=== PATIENT | male | born 1940 | race Caucasian/White ===

== ENCOUNTER → 2017-11-19 | Day surgery (SDC) | payer OTHER ==
[2017-11-17 12:40] LABS: BASOPHILS # (AUTO) 0.1 (0.0-0.1); BASOPHILS % 0.8 % (0.0-1.0); EOSINOPHILS # (AUTO) 0.2 (0.0-0.4); EOSINOPHILS % 2.4 % (0.0-6.0); HEMATOCRIT 43.3 % (38.2-49.6); HEMOGLOBIN 14.6 g/dL (14.0-18.0); LYMPHOCYTES # (AUTO) 1.1 (1.0-3.2); LYMPHOCYTES % 16.6 % (18.0-39.1); MEAN CORPUSCULAR HEMOGLOBIN 32.2 pg (28-32); MEAN CORPUSCULAR HGB CONC 33.7 g/dL (31-35); MEAN CORPUSCULAR VOLUME 95.4 fL (81-99); MONOCYTES # (AUTO) 0.6 (0.2-0.8); MONOCYTES % 8.4 % (4.4-11.3); NEUTROPHILS # (AUTO) 4.7 (2.1-6.9); NEUTROPHILS % 71.5 % (38.7-80.0); PLATELET COUNT 145 x10e3/uL (140-360); RED BLOOD COUNT 4.54 x10e6/uL (4.3-5.7); RED CELL DISTRIBUTION WIDTH 14.3 % (11.7-14.4)
[2017-11-17 12:58] LABS: ANION GAP 12.6 mmol/L (8-16); CALCIUM 9.5 mg/dL (8.4-10.2); CREATININE, SERUM 2.6 mg/dL (0.72-1.25); POTASSIUM 4.6 mmol/L (3.5-5.1)
[~2017-11-19] MED LIST: ACETAMINOPHEN/COD; ACETAMINOPHEN500 M1; ALLOPURINOL100 MG; ASPIRIN325 MG PO; CLOPIDOGREL75 MG PO; DIALYVITE 800-1 EACH; DIPHENHYDRAMINE25 M1; FAMOTIDINE20 MG; FENTANYL CITRATE/PF 100MCG/2 ML INJ ONE; FLAXSEED OIL1000 M1; GABAPENTIN300 MG; GENTAMICIN OINT; LOPERAMIDE2 MG PO; MIDAZOLAM HCL 2 MG/2 ML VIAL ONE; PROLIA60 MG/1 ML IM; PROPOFOL IV EMULSION 10 MG/ML 20 ML VIAL ONE; PSEUDOEPHEDRINE30 MG PO; SIMVASTATIN40 MG; SODIUM CHLORIDE 0.9% 500ML 500 ML ONE; TAMSULOSIN HCL0.4 MG; TESTOSTERONE; TUMS ULTRA400 MG; ULTRAM50 MG; WAL-ACT TABLET1 EACH; [UNRECOGNIZED DRUG - OTHER]; [UNRECOGNIZED DRUG - REMARK]
--- OUTSIDE RECORDS SUMMARY | 2017-11-19 05:48 | XMS REPORT ---
Author Organization Unknown Address [address] [place] [address] Phone [phone] Care Team Providers Care Resident Buyer Name Role Phone BULMARO "DALY" LEILA KIRBY 3 [phone] LB ROBERTSON 61 Unavailable CARD MARTHA KIRBY 82 [phone] EWA KRAUS MD 118 [phone] MINI PALMER MD 111 [phone] TWYLA CASTANO 107 [phone] Allergies Code Code System Name Reaction Severity Status Onset NKDA Medications Name Status Start Date Stop Date acetaminophen 300 mg-codeine 30 mg tablet Completed 07/22/2016 alendronate 70 mg tablet Completed 10/27/2017 allopurinol 100 mg tablet Active Not available amoxicillin 500 mg capsule Completed 09/13/2017 azithromycin 500 mg tablet Completed 07/22/2016 cephalexin 500 mg capsule Completed 03/08/2017 clopidogrel 75 mg tablet Active Not available desoximetasone 0.05 % topical cream Completed 09/30/2016 Dialyvite 800 Plus D 1 tab Q D Active Not available dicyclomine 10 mg capsule Take 1 capsule 3 times a day by oral route for 30 days. Active 10/27/2017 Not available diphenhydramine 25 mg capsule Take 1 capsule as needed by oral route. Active Not available famotidine 10 mg tablet Take 1 tablet every day by oral route as needed. Active Not available flaxseed oil 1,000 mg capsule Take 1300 mg every day by oral route. Active Not available gabapentin 300 mg capsule TAKE 1 CAPSULE BY MOUTH TWICE A DAY DIRECTED Completed 12/17/2016 Gavilyte-C 240 gram-22.72 gram-6.72 gram-5.84 gram oral solution Completed 10/27/2017 loperamide 2 mg tablet Take 1 tablet every 4-6 hours by oral route as needed. Active Not available Multivitamin 50 Plus tablet Take 1 tablet every day by oral route. Active Not available peg-electrolyte solution 420 gram oral solution Completed 10/05/2016 Prevnar 13 (PF) 0.5 mL intramuscular syringe Completed 07/22/2016 Prolia 60 mg/mL subcutaneous syringe inject 1 ml by subcutaneous route once every 6 months. 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 History Pure Hypercholesterolemia Active 05/20/2015 History Hypertensive End Stage Renal Disease Active 05/20/2015 History End Stage Renal Disease Active 05/20/2015 History Hyperuricemia without Signs of Inflammatory Arthritis and Tophaceous Disease Unknown 05/20/2015 History Dependence on Renal Dialysis Active 05/20/2015 History Thoracic Aortic Aneurysm without Rupture Active 10/07/2015 History Abdominal Aortic Aneurysm without Rupture Active 10/07/2015 History Arteriovenous Fistula Unknown 10/07/2015 History Hyperparathyroidism Due to Renal Insufficiency Active 10/07/2015 History Total Nephrectomy Active 10/07/2015 History Ventral Incisional Hernia of Anterior Abdominal Wall without Obstruction and without Gangrene Active 01/08/2016 History Epiretinal Membrane Active 04/21/2016 Posterior Vitreous Detachment Active 04/21/2016 Paving Stone Retinal Degeneration Active 06/10/2016 Obstructive Sleep Apnea Syndrome Active 04/06/2017 Horseshoe Retinal Tear without Detachment Unknown 05/20/2017 Horseshoe Retinal Tear without Detachment Active 05/20/2017 Retinal Lattice Degeneration Active 05/20/2017 Mixed Hyperlipidemia Active 09/13/2017 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 09/13/2017 Idiopathic Progressive Polyneuropathy Active 09/13/2017 Long-term Current Use of Antiplatelet Drug Active 09/13/2017 Osteoporosis Active 10/15/2017 Ex-smoker Active 10/27/2017 Procedures Date Name Performed by Hernia Repair Notes: 1980 Information not available Hernia Repair Notes: 1993 Information not available 07/22/2016 Electrocardiogram [facility] [address] [facility] [address] [place] [address] (Work Place) 09/13/2017 Bone Density [facility] [address] [place], [place] [id number] (Work Place) 09/13/2017 US, Abdominal Aorta [facility] [address] [place] [address] (Work Place) 09/13/2017 US, Duplex, Aorta [facility]) [address] [place] [address] (Work Place) Notes: S/P Laparascopic R Nephrectomy 2* to RCA; Surgery Date: 2010 Lab Results Date Name Specimen Result Interpretation Description Value Range Status Address 09/14/2017 Fecal Occult Blood, Stool Fecal Globin by [employer] ( Medicare) see note Final [facility] Laboratory: [address] [address], [place] 09/13/2017 Uric Acid, Serum or Plasma Normal Uric Acid 5.2 mg/dL 4.0-8.0 mg/dL [facility] Laboratory: [address] [facility] [address] , [place] 09/13/2017 PSA, Serum or Plasma Normal PSA, Total 0.5 NG/mL < or= 4.0 NG/mL [facility] Laboratory: [address] [address], [place] Electrocardiogram Rate & Rhythm [facility]: [address] [facility] [address], [place] Qrs [facility]: [address] [address], [place] Interval [facility]: [address] [facility] [address], [place] QRS Duration [facility]: [address] [address], [place] QT Interval [facility]: [address] [address], [place] Past Encounters 10/27/2017 Body Mass Index 30+ - Obesity; Osteoporosis; Ex-smoker; Mixed Hyperlipidemia; Hypertensive End Stage Renal Disease Bulmaro Mayfield MD: [address] [address], Ph. 10/07/2017 Marilin Garnica: 9055 [facility], [address] [address], [place]. 09/13/2017 Adult Health Examination; Body Mass Index 30+ - Obesity; Hypertensive End Stage Renal Disease; Idiopathic Progressive Polyneuropathy; End Stage Renal Disease; Dependence on Renal Dialysis; Hyperparathyroidism Due to Renal Insufficiency; Total Nephrectomy; Obstructive Sleep Apnea Syndrome; Paving Stone Retinal Degeneration; Epiretinal Membrane; Posterior Vitreous Detachment; Horseshoe Retinal Tear without Detachment; Retinal Lattice Degeneration; Thoracic Aortic Aneurysm without Rupture; Disorder of Purine and Pyrimidine Metabolism; Abdominal Aortic Aneurysm without Rupture; Testicular Hypofunction; Long-term Current Use of Antiplatelet Drug; Mixed Hyperlipidemia; Ventral Incisional Hernia of Anterior Abdominal Wall without Obstruction and without Gangrene; Screening for Malignant Neoplasm of Prostate; Screening for Malignant Neoplasm of Colon; Advance Directive Discussed with Patient; Depression Screening; Screening for Osteoporosis Bulmaro Mayfield MD: [id number] [facility] [address], [place] [address], Ph. 07/28/2017 Body Mass Index 30+ - Obesity; Hypertensive End Stage Renal Disease; End Stage Renal Disease; Dependence on Renal Dialysis; Horseshoe Retinal Tear without Detachment; Retinal Lattice Degeneration; Obstructive Sleep Apnea Syndrome; Thoracic Aortic Aneurysm without Rupture; Abdominal Aortic Aneurysm without Rupture; Testicular Hypofunction; Total Nephrectomy; Hyperparathyroidism Due to Renal Insufficiency; Hyperuricemia without Signs of Inflammatory Arthritis and Tophaceous Disease; Pure Hypercholesterolemia; Ventral Incisional Hernia of Anterior Abdominal Wall without Obstruction and without Gangrene Bulmaro Mayfield MD: [address] [facility], [address] [address], Ph. 05/31/2017 Cassaine Robertson: 9055 [facility], [address] [address], Ph. 04/28/2017 Syncope; Hypertensive End Stage Renal Disease; Obstructive Sleep Apnea Syndrome SANCHO Christopher: [address] [facility], [address] [address], Ph. 04/28/2017 Cassaine Robertson: 9055 [facility], [address] [address], Ph. 03/31/2017 Hypertensive End Stage Renal Disease; Pure Hypercholesterolemia Cassaine Robertson: 9055 [facility], [address] [address], Ph. 03/08/2017 Hypertensive End Stage Renal Disease; End Stage Renal Disease; Dependence on Renal Dialysis Bulmaro Mayfield MD: [address] [facility], [address] [address], Ph. 02/24/2017 Cassaine Robertson: [address]055 Sharmin [address]iggins, [facility] [address], [place] [address], Ph. 01/27/2017 Cassaine Robertson: 9055 Sharmin Riggins, [facility] [address], [place] [address], Ph. 01/20/2017 Hypertensive End Stage Renal Disease; Low Blood Pressure Bulmaro Mayfield MD: 6[address]14 [address]ins, [facility] [address], [place] [address], Ph. 12/04/2016 Hypertensive End Stage Renal Disease; Pure Hypercholesterolemia Shefaliaine Robertson: [address]055 [address]iggins, [facility] [address], [place] [address], Ph. 11/06/2016 Shefaliaine Robertson: 9055 Sharmin Riggins, [facility] [address], [place] [address], Ph. 10/19/2016 Lower Urinary Tract Symptoms Due to Benign Prostatic Hypertrophy; Pure Hypercholesterolemia; Hereditary and Idiopathic Peripheral Neuropathy; Hypertensive End Stage Renal Disease; Disorder of Purine and Pyrimidine Metabolism Bulmaro Mayfield MD: [id number] Pete Riggins, [facility] [address], [place] [address], Ph. 10/02/2016 Hypertensive End Stage Renal Disease; Pure Hypercholesterolemia Lb Robertson: [address] Sharmin Riggins, [facility] [address], [place] [address], Ph. 09/30/2016 Hypertensive End Stage Renal Disease; End Stage Renal Disease; Dependence on Renal Dialysis; Foreign Body in Ear Bulmaro Mayfield MD: 86544 Pete Riggins, [facility] [address], [place] [address], Ph. 08/26/2016 Cassaine Robertson: [address]055 Sharmin R[address], [address] [address], [place] [address], Ph. 07/30/2016 Shefaliaine Robertson: 9055 [facility] [address] [address], [place] [address], Ph. 07/22/2016 Adult Health Examination; Hypertensive End Stage Renal Disease; End Stage Renal Disease; Dependence on Renal Dialysis; Paving Stone Retinal Degeneration; Posterior Vitreous Detachment; Pure Hypercholesterolemia; Disorder of Purine and Pyrimidine Metabolism; Lower Urinary Tract Symptoms Due to Benign Prostatic Hypertrophy; Hereditary and Idiopathic Peripheral Neuropathy; Thoracic Aortic Aneurysm without Rupture; Abdominal Aortic Aneurysm without Rupture; Umbilical Hernia without Obstruction and without Gangrene; Testicular Hypofunction; Advance Directive Discussed with Patient; Body Mass Index 30+ - Obesity; Screening for Malignant Neoplasm of Colon; Screening for Malignant Neoplasm of Prostate Bulmaro Mayfield MD: [id number] [facility], [address], [place] [address], Ph. Social History Smoking Status Former Smoker Notes: Quit 2004 Vaccine List Vaccine Type influenza, high dose seasonal 03/26/2016 04/27/2017 influenza, seasonal, injectable 04/02/2014 pneumococcal, unspecified formulation 04/06/2014 Tdap 07/19/2012 Notes: decline's all vaccine's -10/27/2017-calin Plan of Care Patient Instructions PROBLEM The patient has a diagnosis of ESRD GOAL The patients condition will be managed in the outpatient setting. INTERVENTIONS . Keep routine f/u appts with pcp/specialist including labs and diagnostic tests . Take all medications as ordered . Comply with renal diet and fluid restriction . Follow dialysis schedule . Do not take advil, motrin, naproxen or similar medicines unless your doctor tells you to. . Do not smoke or drink alcohol .Self monitor and report n/v, fever, chest pain/sob, confusion, weakness, edema. . Report increased pain, swelling, warmth, redness, red streaks, pus from dialysis access site. Problem: The patient has a diagnosis of pure hypercholesterolemia. Goal: The patient will have an improvement of cholesterol lab values. Interventions: 1. Encourage patient to exercise 3 times a week for about 30 minutes 2. Encourage patient to follow a heart healthy/renal diet. 3. Encourage patient to take medication as prescribed. PROBLEM The patient has a diagnosis of ESRD GOAL The patients condition will be managed in the outpatient setting. INTERVENTIONS . Keep routine f/u appts with pcp/specialist including labs and diagnostic tests . Take all medications as ordered . Comply with renal diet and fluid restriction . Follow dialysis schedule . Do not take advil, motrin, naproxen or similar medicines unless your doctor tells you to. . Do not smoke or drink alcohol .Self monitor and report n/v, fever, chest pain/sob, confusion, weakness, edema. . Report increased pain, swelling, warmth, redness, red streaks, pus from dialysis access site. Problem: The patient has a diagnosis of pure hypercholesterolemia. Goal: The patient will have an improvement of cholesterol lab values. Interventions: 1. Encourage patient to exercise 3 times a week for about 30 minutes 2. Encourage patient to follow a heart healthy/renal diet. 3. Encourage patient to take medication as prescribed. PROBLEM The patient has a diagnosis of ESRD GOAL The patients condition will be managed in the outpatient setting. INTERVENTIONS . Keep routine f/u appts with pcp/specialist including labs and diagnostic tests . Take all medications as ordered . Comply with renal diet and fluid restriction . Follow dialysis schedule . Do not take advil, motrin, naproxen or simiilar medicines unless your doctor tells you to. . Do not smoke or drink alcohol .Self monitor and report n/v, fever, chest pain/sob, confusion, weakness, edema. . Report increased pain, swelling, warmth, redness, red streaks, pus from dialysis access site. PROBLEM The patient has a diagnosis of ESRD GOAL The patients condition will be managed in the outpatient setting. INTERVENTIONS . Keep routine f/u appts with pcp/specialist including labs and diagnostic tests . Take all medications as ordered . Comply with renal diet and fluid restriction . Follow dialysis schedule . Do not take advil, motrin, naproxen or simiilar medicines unless your doctor tells you to. . Do not smoke or drink alcohol .Self monitor and report n/v, fever, chest pain/sob, confusion, weakness, edema. . Report increased pain, swelling, warmth, redness, red streaks, pus from dialysis access site. It was good to see you in the office today for your Medicare Annual Wellness Visit. You have been provided some information on healthy nutrition, including a diet rich in fruits and vegetables, minimizing simple carbohydrates, salt, and saturated fats. I want to encourage regular cardiovascular exercise such as walking at least 30 minutes daily, 5 times per week. Please remember to schedule any preventive health measures that we talked about today. You have also been provided education on fall prevention and community- based lifestyle interventions to help reduce health risks and promote healthy living in your [employer] folder. Reminders Provider Appointments None recorded. Lab None recorded. Referral None recorded. Procedures None recorded. Surgeries None recorded. Imaging None recorded. Vitals 10/27/2017 10:45AM Est Patient Height Weight BMI Blood Pressure 5 ft 8.5 in 204.6 lbs 30.7 kg/m2 106/60 mm[Hg] 09/13/2017 11:00AM AWV Height Weight BMI Blood Pressure 5 ft 8.5 in 204.2 lbs 30.6 kg/m2 122/78 mm[Hg] 07/28/2017 10:15AM Est Patient Height Weight BMI Blood Pressure 5 ft 8.5 in 204.2 lbs 30.6 kg/m2 118/79 mm[Hg] 04/28/2017 10:15AM Est Patient Height Weight BMI Blood Pressure 5 ft 8.5 in 204 lbs 30.6 kg/m2 125/75 mm[Hg] 03/08/2017 02:15PM Est Patient Height Weight BMI Blood Pressure 5 ft 8.5 in 208 lbs 31.2 kg/m2 131/82 mm[Hg] 01/20/2017 10:15AM Est Patient Height Weight BMI Blood Pressure 5 ft 9.5 in 208.4 lbs 30.3 kg/m2 119/82 mm[Hg] 10/19/2016 10:45AM Est Patient Height 5 ft 9.5 in 09/30/2016 03:30PM Work In Same Day Height Weight BMI Blood Pressure 5 ft 9.5 in 216.8 lbs 31.6 kg/m2 109/66 mm[Hg] 07/22/2016 10:00AM Est Patient Height Weight BMI Blood Pressure 5 ft 9.5 in 218.6 lbs 31.8 kg/m2 121/80 mm[Hg] 01/08/2016 Height Weight BMI Blood Pressure 5 ft 9.5 in 213.8 lbs 31.12 kg/m2 134/74 mm[Hg] 10/07/2015 Height Weight BMI Blood Pressure 5 ft 9.5 in 217 lbs 31.58 kg/m2 112/68 mm[Hg] 07/09/2015 Height Weight BMI Blood Pressure 5 ft 9.5 in 214.4 lbs 31.20 kg/m2 122/74 mm[Hg] 05/20/2015 Height Weight BMI Blood Pressure 5 ft 9.5 in 216 lbs 31.44 kg/m2 124/70 mm[Hg] 03/27/2015 Height Weight BMI Blood Pressure 5 ft 9.5 in 215.4 lbs 31.35 kg/m2 122/84 mm[Hg] 02/15/2015 Height Weight BMI Blood Pressure 5 ft 9.5 in 223.6 lbs 32.54 kg/m2 124/74 mm[Hg] 01/02/2015 Height Weight BMI Blood Pressure 5 ft 9.5 in 218.6 lbs 31.82 kg/m2 118/70 mm[Hg] 11/21/2014 Height Weight BMI Blood Pressure 5 ft 9.5 in 217.6 lbs 31.67 kg/m2 116/60 mm[Hg] 11/12/2014 Height Weight BMI Blood Pressure 5 ft 9.5 in 220.6 lbs 32.11 kg/m2 124/70 mm[Hg] 10/03/2014 Height Weight BMI Blood Pressure 5 ft 9.5 in 221.2 lbs 32.19 kg/m2 118/60 mm[Hg] 08/13/2014 Height Weight BMI Blood Pressure 5 ft 9.5 in 223.2 lbs 32.48 kg/m2 115/70 mm[Hg] 05/14/2014 Height Weight BMI Blood Pressure 5 ft 9.5 in 215 lbs 31.29 kg/m2 106/60 mm[Hg] 04/17/2014 Height Weight BMI Blood Pressure 5 ft 9.5 in 215.8 lbs 31.41 kg/m2 114/62 mm[Hg] 02/26/2014 Height Weight 5 ft 9.5 in 215.2 lbs 02/21/2014 Height Weight 5 ft 9.5 in 217 lbs 02/12/2014 Height Weight 5 ft 9.5 in 217.5 lbs 11/13/2013 Height Weight 4 ft 10.5 in 272 lbs 09/13/2013 Height Weight 5 ft 9.5 in 210 lbs 08/18/2013 Height Weight 5 ft 9.5 in 209 lbs 07/24/2013 Height Weight 5 ft 9.5 in 209 lbs 06/26/2013 Height Weight 5 ft 9.5 in 216.4 lbs 05/30/2013 Height Weight 5 ft 9.5 in 215.2 lbs 05/03/2013 Height Weight 5 ft 9.5 in 223.5 lbs 03/22/2013 Height Weight 5 ft 9.5 in 222.6 lbs 02/27/2013 Weight 218.8 lbs 01/18/2013 Height Weight 5 ft 9.5 in 216.6 lbs 01/06/2013 Height Weight 5 ft 9.5 in 217.2 lbs 11/08/2012 Height Weight 5 ft 9.5 in 215.6 lbs 10/19/2012 Height Weight 5 ft 9.5 in 218.4 lbs 08/17/2012 Height 5 ft 9.5 in 08/17/2012 Weight 219.4 lbs 08/03/2012 Height Weight 5 ft 9.5 in 223.2 lbs 07/20/2012 Height Weight 5 ft 9.5 in 220.2 lbs 07/06/2012 Height Weight 5 ft 9.5 in 223.2 lbs 06/22/2012 Height Weight 5 ft 9.5 in 226.2 lbs 06/07/2012 Height Weight 5 ft 9.5 in 223.6 lbs 05/24/2012 Weight 231.8 lbs 05/24/2012 Height 5 ft 9.5 in 05/10/2012 Height Weight 5 ft 9.5 in 221.4 lbs 04/26/2012 Height Weight 5 ft 9.5 in 217.8 lbs 04/11/2012 Height Weight 5 ft 9.5 in 227.2 lbs 03/24/2012 Height Weight 5 ft 9.5 in 218.6 lbs 03/17/2012 Height Weight 5 ft 9.5 in 219.2 lbs 03/11/2012 Height Weight 5 ft 9.5 in 225.6 lbs 03/03/2012 Height Weight 5 ft 9.5 in 220.6 lbs 02/25/2012 Height Weight 5 ft 9.5 in 218.6 lbs 01/22/2012 Height Weight 5 ft 9.5 in 214 lbs 10/22/2011 Height Weight 5 ft 9.5 in 223.4 lbs 08/21/2011 Height Weight 5 ft 9.5 in 221.6 lbs 07/23/2011 Height Weight 5 ft 9.5 in 223 lbs 04/24/2011 Weight 221.4 lbs 04/24/2011 Height 5 ft 9.5 in 01/28/2011 Height Weight 5 ft 9.5 in 212.4 lbs 01/06/2011 Height Weight 5 ft 9.5 in 208.2 lbs 11/21/2010 Height Weight 5 ft 9.5 in 209.4 lbs 11/12/2010 Height Weight 5 ft 9.5 in 215 lbs 10/06/2010 Height Weight 5 ft 9.5 in 215 lbs 09/26/2010 Height Weight 5 ft 9.5 in 215 lbs 07/08/2010 Height Weight 5 ft 9.5 in 216.4 lbs 05/23/2010 Height Weight 5 ft 9.5 in 214.4 lbs 05/05/2010 Height Weight 5 ft 9.5 in 216.8 lbs 04/10/2010 Height Weight 5 ft 9.5 in 221.6 lbs 01/08/2010 Height Weight 5 ft 9.5 in 219.4 lbs 10/22/2009 Weight 220 lbs 07/24/2009 Weight 227 lbs 04/23/2009 Weight 221 lbs 01/21/2009 Weight 219 lbs 10/24/2008 Height Weight 5 ft 9.5 in 220 lbs 10/22/2008 Height Weight 5 ft 9.5 in 224 lbs 07/23/2008 Weight 216 lbs 03/23/2008 Weight 216.1 lbs 03/15/2008 Weight 212.6 lbs 09/19/2007 Weight 215.4 lbs
== END | disposition home or self-care (01) ==
LOC: OR 05:46
PROVIDERS: ATTEND Internal Medicine Gastroenterology
DX: Z09 Encounter for follow-up examination after completed treatment for conditions other than malignant neoplasm (principal); K57.30 Diverticulosis of large intestine without perforation or abscess without bleeding; K64.8 Other hemorrhoids; K21.9 Gastro-esophageal reflux disease without esophagitis; K44.9 Diaphragmatic hernia without obstruction or gangrene; J44.9 Chronic obstructive pulmonary disease, unspecified; G47.33 Obstructive sleep apnea (adult) (pediatric); I25.10 Atherosclerotic heart disease of native coronary artery without angina pectoris; I12.0 Hypertensive chronic kidney disease with stage 5 chronic kidney disease or end stage renal disease; N18.6 End stage renal disease; E78.5 Hyperlipidemia, unspecified; Z01.810 Encounter for preprocedural cardiovascular examination; Z01.812 Encounter for preprocedural laboratory examination; Z79.02 Long term (current) use of antithrombotics/antiplatelets; Z99.2 Dependence on renal dialysis; Z85.528 Personal history of other malignant neoplasm of kidney; Z87.891 Personal history of nicotine dependence
CPT/HCPCS: 36415 ×2; 45378; 80048; 84132; 85025; 93005; J2250; J7040; G0105

== ENCOUNTER → 2021-02-20 | Day surgery (SDC) | payer MEDICARE, OTHER ==
[2021-02-17 12:57] LABS: BASOPHILS # (AUTO) 0.1 (0.0-0.1); EOSINOPHILS # (AUTO) 0.2 (0.0-0.4); EOSINOPHILS % 2.1 % (0.0-6.0); HEMATOCRIT 45.6 % (38.2-49.6); HEMOGLOBIN 14.7 g/dL (14.0-18.0); LYMPHOCYTES % 14.7 % (18.0-39.1); MEAN CORPUSCULAR HEMOGLOBIN 32.1 pg (28-32); MEAN CORPUSCULAR HGB CONC 32.2 g/dL (31-35); MEAN CORPUSCULAR VOLUME 99.6 fL (81-99); MONOCYTES # (AUTO) 0.7 (0.2-0.8); MONOCYTES % 9.6 % (4.4-11.3); NEUTROPHILS # (AUTO) 5.1 (2.1-6.9); NEUTROPHILS % 72.3 % (38.7-80.0); PLATELET COUNT 129 x10e3/uL (140-360); RED BLOOD COUNT 4.58 x10e6/uL (4.3-5.7); RED CELL DISTRIBUTION WIDTH 14.8 % (11.7-14.4)
[~2021-02-20] MED LIST changes: +ACETAMINOPHEN80 M1; +ASPIRIN81 MG PO; -FENTANYL CITRATE/PF 100MCG/2 ML INJ ONE; +FUROSEMIDE40 MG PO; +LIDOCAINE HCL 2% LOCAL INJ 5 ML SDV VIAL INJ ONE; -MIDAZOLAM HCL 2 MG/2 ML VIAL ONE; -SODIUM CHLORIDE 0.9% 500ML 500 ML ONE; +TUMS ULTRA400 MG PO; +[UNRECOGNIZED DRUG - OTHER]; +topical cream TP
[2021-02-20 11:00] VITALS: BP 99/55
== END | disposition home or self-care (01) ==
LOC: OR 06:59
PROVIDERS: ATTEND Internal Medicine Gastroenterology
DX: Z86.010 Personal history of colon polyps (principal); E66.3 Overweight; Z68.28 Body mass index [BMI] 28.0-28.9, adult; K64.8 Other hemorrhoids; I12.0 Hypertensive chronic kidney disease with stage 5 chronic kidney disease or end stage renal disease; J44.9 Chronic obstructive pulmonary disease, unspecified; K76.0 Fatty (change of) liver, not elsewhere classified; E78.00 Pure hypercholesterolemia, unspecified; N18.6 End stage renal disease; G47.33 Obstructive sleep apnea (adult) (pediatric); I71.4 Abdominal aortic aneurysm, without rupture; Z71.3 Dietary counseling and surveillance; Z87.891 Personal history of nicotine dependence; Z01.810 Encounter for preprocedural cardiovascular examination; Z01.812 Encounter for preprocedural laboratory examination; Z20.822 Contact with and (suspected) exposure to COVID-19
CPT/HCPCS: 36415; 85025; 93005; G0121; J2001; J2704; U0002; 45378